=== PATIENT | male | born 1950 | race Caucasian/White ===

== ENCOUNTER 2018-09-01 07:37 | Outpatient (CLI) | payer MEDICARE ==
[~2018-09-01 07:37] MED LIST: REGADENOSON 0.4 MG/5 ML SYRINGE ONE
== END 2018-09-01 23:59 | disposition home or self-care (01) ==
LOC: CFH 07:37
PROVIDERS: ATTEND Physician Assistant
DX: I48.0 Paroxysmal atrial fibrillation (principal); I10 Essential (primary) hypertension
CPT/HCPCS: 78452; 93017; A9502; J2785